=== PATIENT | female | born 1965 | race Caucasian/White ===

== ENCOUNTER 2019-10-24 21:40 | Observation (INO) ==
[2019-10-25] MEDS ORDERED: Ketorolac 15 MG/ML VIAL IVP PRN (00:54)
[2019-10-25] MEDS ORDERED: Ondansetron ODT 4 MG TAB.RAPDIS SL PRN ×2 (00:54→17:59)
[2019-10-25] MEDS ORDERED: Naloxone 0.4 MG/ML INJ IVP PRN ×3 (00:54→17:59)
[2019-10-25] MEDS: 0.9 % Sodium Chloride 1,000 ML IVC SCH ×2 (02:55→11:25)
[2019-10-25 04:58] LABS: Basophils % 0.4 %; Eosinophils % 0.6 %; Hematocrit 30.6 % (35.3-44.9); Hemoglobin 10.4 g/dL (11.5-15.4); Immature Granulocytes % 1.1 % (0-4); Lymphocytes % 19.2 %; Mean Corpuscular Hemoglobin 30.4 pg (28.0-33.3); Mean Corpuscular Volume 89.5 fL (83.0-100.0); Mean Platelet Volume 10.5 fL (9.4-12.4); Monocytes # 0.4 K/mcL (0.0-1.3); Monocytes % 7.5 %; Neutrophils # 3.8 K/mcL (1.6-8.9); Platelet Count 125 K/mcL (140-400); Red Blood Count 3.42 M/mcL (3.82-4.97); Red Cell Distribution Width 12.3 % (11.5-14.5); Segmented Neutrophils % 71.2 %; White Blood Count 5.3 K/mcL (4.3-11.1)
[2019-10-25 05:16] LABS: Calcium 8.9 mg/dL (8.6-10.3); Potassium 3.3 mEq/L (3.5-5.1)
[2019-10-25 05:18] LABS: Chol/HDL Ratio 3.7 (0-4.9); Magnesium 1.9 mg/dL (1.6-2.6)
[2019-10-25] MEDS ORDERED: SERTRALINE HCL PO SCH (09:00)
[2019-10-25] MEDS ORDERED: GABAPENTIN PO SCH (09:00)
[2019-10-25] MEDS ORDERED: cefTRIAXone 1,000 MG in Water for inj. (sterile) 10 ML IVP SCH (09:00)
[2019-10-25] MEDS ORDERED: amLODIPine 5 MG TABLET PO SCH (09:00)
[2019-10-25] MEDS ORDERED: *HR* OxyCODONE Immed Rel 5 MG TABLET PO PRN ×2 (10:52→17:59)
[2019-10-25] MEDS ORDERED: *HR* HYDROmorphone (PF) 1 MG/ML SYRINGE IVP PRN (16:27)
[2019-10-25] MEDS ORDERED: Isovue-300 50ML VIAL ONE (16:40)
[2019-10-25] MEDS ORDERED: Acetaminophen IV 1,000 MG/100 ML INFUS..BTL ONE (16:42)
[2019-10-25] MEDS ORDERED: *HR* Propofol 200 MG/20 ML VIAL IVP ONE ×2 (16:43→18:30)
[2019-10-25] MEDS ORDERED: *HR* FentaNYL (PF) 100 MCG/2 ML VIAL ONE ×2 (16:43→18:30)
[2019-10-25] MEDS ORDERED: Lidocaine -MPF 2% 2 ML VIAL ONE ×2 (16:44→18:33)
[2019-10-25] MEDS ORDERED: Ondansetron 4 MG/2 ML VIAL ONE ×2 (16:54→18:38)
[2019-10-25] MEDS ORDERED: Ketorolac 30 MG/ML VIAL ONE ×2 (17:18→19:08)
[2019-10-25] MEDS ORDERED: 0.9 % Sodium Chloride 1,000 ML IVC SCH (17:59)
[2019-10-25] MEDS ORDERED: *HR* Midazolam HCl 2 MG/2 ML VIAL ONE (18:30)
[2019-10-25] MEDS ORDERED: *HR* Succinylcholine 200 MG/10 ML VIAL IVP ONE (18:33)
[2019-10-25] MEDS ORDERED: Dexamethasone 4 MG/ML VIAL ONE (18:38)
[2019-10-25] MEDS ORDERED: *HR* Rocuronium Bromide 50 MG/5 ML VIAL ONE (19:00)
[2019-10-25] MEDS ORDERED: 0.9 % Sodium Chloride 1,000 ML ONE (21:12)
[2019-10-26 07:06] VITALS: BP 129/71
[2019-10-26 07:06] LABS: Hematocrit 30.1 % (35.3-44.9); Hemoglobin 10.3 g/dL (11.5-15.4); Mean Corpuscular HGB Conc 34.2 g/dL (31.6-35.5); Mean Corpuscular Hemoglobin 29.7 pg (28.0-33.3); Mean Corpuscular Volume 86.7 fL (83.0-100.0); Mean Platelet Volume 10.5 fL (9.4-12.4); Platelet Count 133 K/mcL (140-400); Red Blood Count 3.47 M/mcL (3.82-4.97); Red Cell Distribution Width 12.4 % (11.5-14.5); White Blood Count 4.6 K/mcL (4.3-11.1)
[2019-10-26 07:42] LABS: BUN/Creatinine Ratio 9 (6-26); Blood Urea Nitrogen 6 mg/dL (6-20); Calcium 8.7 mg/dL (8.6-10.3); Carbon Dioxide 22 mEq/L (23-29); Chloride 106 mEq/L (98-107); Glucose 95 mg/dL (70-105); Osmolality,Calculated 291 (280-300); Potassium 3.7 mEq/L (3.5-5.1); Sodium 142 mEq/L (136-145); eGFR For African Americans > 60 (> 60); eGFR For Non-African Americans > 60 (> 60)
[2019-10-26] MEDS ORDERED: cefTRIAXone 1,000 MG in Water for inj. (sterile) 10 ML IVP SCH (09:00)
[2019-10-26] MEDS ORDERED: amLODIPine 5 MG TABLET PO SCH (09:00)
== END 2019-10-26 11:29 | disposition home or self-care (01) ==
LOC: 3ANU → SUATTDRO 23:29
PROVIDERS: ADMIT Student in an Organized Health Care Education/Training Program; ATTEND Internal Medicine